=== PATIENT | female | born 1960 | race Caucasian/White ===

== ENCOUNTER → 2024-05-26 | Outpatient (CLI) | payer OTHER ==
--- NOTE | 2024-05-26 11:29 | HMCIMG ---
ULTRASOUND ABDOMEN COMPLETE INDICATION: Abdominal Pain COMPARISON: None. FINDINGS: The liver is normal in size and echogenicity; no focal lesion demonstrated. Main portal vein is patent, and normal direction of vascular flow demonstrated. The common bile duct caliber measures 4.0 mm. Gallbladder appears to be completely filled with sludge and echogenic shadowing stones without any pericholecystic fluid demonstrated, however, lead software tester failed to mention these findings on the provided worksheet. No sonographic Maradiaga's sign elicited by the ultrasound stencil machine operator. Wall thickness measures 2.0 mm. The spleen is normal in size and echotexture. The spleen measures 10.0 cm. Visible portions of the pancreas appear unremarkable. The right kidney measures 10.3 x 3.8 x 5.1 cm,and is normal in echogenicity, without evidence for hydronephrosis or shadowing stones. The left kidney measures 11.8 x 4.9 x 4.8 cm,and is normal in echogenicity, without evidence for hydronephrosis or shadowing stones. Visible portions of the abdominal aorta are within normal limits. Visible portions of the inferior vena cava are within normal limits. No free fluid demonstrated. IMPRESSION: Cholelithiasis without cholecystitis.
== END | disposition home or self-care (01) ==
LOC: RAH 09:21
PROVIDERS: ATTEND Internal Medicine
DX: K80.20 Calculus of gallbladder without cholecystitis without obstruction (principal); R10.11 Right upper quadrant pain
CPT/HCPCS: 76700